=== PATIENT | male | born 1990 | race Caucasian/White ===

== ENCOUNTER 2018-05-29 19:04 | Inpatient (IN) | payer MEDICARE, MEDICAID ==
[~2018-05-29] VITALS: Ht 167.6 cm; Wt 66.7 kg
[2018-05-29] MEDS ORDERED: LORazepam 2 MG/ML VIAL ONE (19:21)
[2018-05-29] MEDS ORDERED: DiphenhydrAMINE HCL 50 MG/ML VIAL ONE (19:21)
[2018-05-29] MEDS ORDERED: HALOPERIDOL LACTATE 5 MG/ML VIAL ONE (19:21)
[2018-05-29] MEDS ORDERED: DiphenhydrAMINE HCL 50 MG/ML VIAL IM ONE (19:30)
[2018-05-29] MEDS ORDERED: HALOPERIDOL LACTATE 5 MG/ML VIAL IM ONE (19:30)
[2018-05-29] MEDS ORDERED: LORazepam 2 MG/ML VIAL IM ONE (19:30)
[2018-05-29 19:47] VITALS: BP 142/88
[2018-05-30 06:20] VITALS: BP 121/66
[2018-05-30 08:08] VITALS: BP 118/60
[2018-05-30 08:56] LABS: BASOPHILS % (AUTO) 0.5 % (0.0-2.0); EOSINOPHILS % (AUTO) 3.2 % (1.0-6.0); HEMATOCRIT 41.5 % (41-53); HEMOGLOBIN 14.8 g/dL (13.5-17.5); LYMPHOCYTES # (AUTO) 1.4 K/uL (1.0-4.8); LYMPHOCYTES % (AUTO) 18.2 % (22.0-44.0); MEAN CORPUSCULAR HEMOGLOBIN 29.7 pg (26.0-34.0); MEAN CORPUSCULAR HGB CONC 35.5 G/dL (31.0-37.0); MEAN CORPUSCULAR VOLUME 84 fL (80-100); MONOCYTES # (AUTO) 0.6 K/uL (0.1-1.0); MONOCYTES % (AUTO) 8.3 % (2.0-9.0); NEUTROPHILS # (AUTO) 5.5 K/uL (1.8-7.7); NEUTROPHILS % (AUTO) 69.8 % (40.0-70.0); PLATELET COUNT (AUTO) 180 K/uL (150-450); RED BLOOD CELL COUNT(AUTO) 4.97 MIL/uL (4.50-5.90)
[2018-05-30] MEDS ORDERED: NICOTINE 21 MG/24 HOUR PATCH TD SCH (09:00)
[2018-05-30 09:18] LABS: HEMOGLOBIN A1C 4.8 % (4.5-6.2)
[2018-05-30 09:49] LABS: ALANINE AMINOTRANSFERASE 19 U/L (12-78); ALBUMIN 3.6 g/dL (3.4-5.0); ALKALINE PHOSPHATASE 77 U/L (46-116); ANION GAP 5 mmol/L (8-16); ASPARTATE AMINOTRANSFERASE 27 U/L (15-37); CALCIUM, TOTAL 8.9 mg/dL (8.8-10.5); CARBON DIOXIDE 32 mmol/L (22-29); CHLORIDE 105 mmol/L (98-107); CHOL/HDL RATIO 2.5 (4.2-7.3); CHOLESTEROL 109 mg/dL (131-200); CREATININE 0.95 mg/dL (0.60-1.30); FREE T4 (FREE THYROXINE) 0.89 ng/dL (0.76-1.46); GLOMERULAR FILTR. RATE CALC > 60 mL/min (>60); GLUCOSE,RANDOM 93 mg/dL (70-110); HDL CHOLESTEROL 43 mg/dL (40-60); LDL CHOL (CALC.) 55 mg/dL (0-130); POTASSIUM 4.1 mmol/L (3.5-5.1); SODIUM SERUM 142 mmol/L (136-145); THYROID STIMULATING HORMONE 0.64 uIU/mL (0.36-3.74); TOTAL PROTEIN, SERUM 6.9 g/dL (6.4-8.2); TRIGLYCERIDES 55 mg/dL (15-150); UREA NITROGEN, BLOOD 15 mg/dL (7-18)
[2018-05-30] MEDS: HALOPERIDOL 5 MG TABLET PO PRN ×2 (09:55→16:45)
[2018-05-30] MEDS: LORazepam 2 MG TABLET PO PRN ×2 (09:55→16:45)
[2018-05-30] MEDS ORDERED: LOPERAMIDE HCL 2 MG CAPSULE PO PRN (11:30)
[2018-05-30] MEDS ORDERED: DOCUSATE SODIUM 100 MG CAPSULE PO PRN (11:30)
[2018-05-30] MEDS ORDERED: PETROLATUM,WHITE 71 GM JELLY TP PRN (11:30)
[2018-05-30] MEDS ORDERED: IBUPROFEN 400 MG TABLET PO PRN (11:30)
[2018-05-30] MEDS ORDERED: ACETAMINOPHEN 325 MG TABLET PO PRN (11:30)
[2018-05-30] MEDS ORDERED: ONDANSETRON HCL 4 MG TABLET PO PRN (11:30)
[2018-05-30] MEDS ORDERED: ALBUTEROL SULFATE HFA 90 MCG/PUFF 8 GM INHALER IH PRN (11:30)
[2018-05-30] MEDS ORDERED: MAG HYDROX/AL HYDROX/SIMETH ES 30 ML SUSPENSION UDCUP PO PRN (11:30)
[2018-05-30] MEDS ORDERED: CloNIDine HCL 0.1 MG TABLET PO PRN (11:30)
[2018-05-30] MEDS ORDERED: MAGNESIUM HYDROXIDE SUSPENSION 30 ML UDCUP PO PRN (11:30)
[2018-05-30 16:00] VITALS: BP 112/65
[2018-05-31 06:16] VITALS: BP 103/82
[2018-05-31 09:05] LABS: HEMOGLOBIN A1C 4.6 % (4.5-6.2)
[2018-05-31 09:26] LABS: CHOL/HDL RATIO 2.3 (4.2-7.3); THYROID STIMULATING HORMONE 0.61 uIU/mL (0.36-3.74)
[2018-05-31] MEDS: ARIPiprazole 10 MG TABLET PO SCH (09:33)
[2018-05-31] MEDS: NICOTINE 14 MG/24 HOUR PATCH TD SCH (09:34)
[2018-05-31] MEDS: LORazepam 2 MG TABLET PO PRN (12:56)
[2018-05-31 16:00] VITALS: BP 116/67
[2018-06-01 03:15] VITALS: BP 102/66
[2018-06-01 08:00] VITALS: BP 114/72
[2018-06-01] MEDS: ARIPiprazole 10 MG TABLET PO SCH (09:18)
[2018-06-01] MEDS: NICOTINE 14 MG/24 HOUR PATCH TD SCH (09:19)
[2018-06-01 16:00] VITALS: BP 102/64
[2018-06-01] MEDS: ZOLPIDEM TARTRATE 10 MG TABLET PO PRN (21:14)
[2018-06-02 01:32] VITALS: BP 106/73
[2018-06-02] MEDS: HALOPERIDOL 5 MG TABLET PO PRN ×2 (05:00→16:21)
[2018-06-02] MEDS: LORazepam 2 MG TABLET PO PRN ×4 (05:00→20:55)
[2018-06-02 08:07] VITALS: BP 105/65
[2018-06-02] MEDS: ARIPiprazole 10 MG TABLET PO SCH (09:10)
[2018-06-02] MEDS: NICOTINE 14 MG/24 HOUR PATCH TD SCH (09:10)
[2018-06-02 16:00] VITALS: BP 107/74
[2018-06-02] MEDS: ZOLPIDEM TARTRATE 10 MG TABLET PO PRN (20:55)
[2018-06-03 02:18] VITALS: BP 10/83
[2018-06-03 08:07] VITALS: BP 105/60
[2018-06-03] MEDS: NICOTINE 14 MG/24 HOUR PATCH TD SCH (08:36)
[2018-06-03] MEDS: ARIPiprazole 10 MG TABLET PO SCH (08:36)
[2018-06-03] MEDS: LORazepam 2 MG TABLET PO PRN ×2 (13:02→17:17)
[2018-06-03 16:00] VITALS: BP 114/68
[2018-06-03] MEDS ORDERED: TUBERCULIN, PURIFIED PROTEIN DERIVATIVE 5 TU/0.1 ML SYG ID ONE (16:30)
[2018-06-03] MEDS: HALOPERIDOL 5 MG TABLET PO PRN (17:17)
[2018-06-03] MEDS: ZOLPIDEM TARTRATE 10 MG TABLET PO PRN (20:38)
[2018-06-04 06:00] VITALS: BP 106/66
[2018-06-04 08:08] VITALS: BP 136/75
[2018-06-04] MEDS: NICOTINE 14 MG/24 HOUR PATCH TD SCH (09:31)
[2018-06-04] MEDS: ARIPiprazole 10 MG TABLET PO SCH (09:31)
[2018-06-04 16:00] VITALS: BP 114/75
[2018-06-04] MEDS ORDERED: ARIP10TA8 PO (16:59)
[2018-06-04] MEDS: LORazepam 2 MG TABLET PO PRN ×2 (17:36→21:37)
[2018-06-04] MEDS: HALOPERIDOL 5 MG TABLET PO PRN (17:36)
[2018-06-04] MEDS: ZOLPIDEM TARTRATE 10 MG TABLET PO PRN (21:37)
[2018-06-05 06:30] VITALS: BP 96/57
[2018-06-05 08:12] VITALS: BP 108/75
[2018-06-05] MEDS: ARIPiprazole 10 MG TABLET PO SCH (09:43)
[2018-06-05] MEDS: NICOTINE 14 MG/24 HOUR PATCH TD SCH (12:41)
[2018-06-05 16:00] VITALS: BP 129/70
[2018-06-05] MEDS: LORazepam 2 MG TABLET PO PRN ×2 (16:16→21:53)
[2018-06-05] MEDS: HALOPERIDOL 5 MG TABLET PO PRN (16:16)
[2018-06-05] MEDS: ZOLPIDEM TARTRATE 10 MG TABLET PO PRN (21:53)
[2018-06-06 06:10] VITALS: BP 122/75
[2018-06-06 08:43] VITALS: BP 114/70
[2018-06-06] MEDS ORDERED: ARIPiprazole 15 MG TABLET PO SCH (09:00)
[2018-06-06] MEDS: NICOTINE 14 MG/24 HOUR PATCH TD SCH (10:56)
== END 2018-06-06 13:43 | disposition home or self-care (01) | DRG 885 ==
LOC: B3A 19:25
PROVIDERS: ADMIT Psychiatry & Neurology Psychiatry; ATTEND Psychiatry & Neurology Psychiatry
DX: F20.0 Paranoid schizophrenia (principal); F15.20 Other stimulant dependence, uncomplicated; R00.0 Tachycardia, unspecified; R45.87 Impulsiveness; F10.10 Alcohol abuse, uncomplicated; Z71.41 Alcohol abuse counseling and surveillance of alcoholic; Z71.51 Drug abuse counseling and surveillance of drug abuser; Z81.8 Family history of other mental and behavioral disorders; Z91.19 Patient's noncompliance with other medical treatment and regimen
CPT/HCPCS: 83036; 84439; 84443; J1200; J1630; J2060

== ENCOUNTER 2018-07-16 10:53 | Emergency (ER) | payer OTHER ==
[~2018-07-16] VITALS: Ht 170.2 cm; Wt 63.6 kg
[~2018-07-16 10:53] MED LIST: ARIP10TA8 PO
[2018-07-16] MEDS ORDERED: AMOX TR/POT CLAV 875 MG/125 MG TABLET PO ONE (12:30)
[2018-07-16] MEDS ORDERED: KETOROLAC TROMETHAMINE 30 MG/ML VIAL IM ONE (12:30)
[2018-07-16 14:18] VITALS: BP 132/81
== END 2018-07-16 14:21 | disposition home or self-care (01) ==
LOC: EMS 10:54
DX: S00.501A Unspecified superficial injury of lip, initial encounter (principal); F15.90 Other stimulant use, unspecified, uncomplicated; F17.210 Nicotine dependence, cigarettes, uncomplicated; Y04.0XXA Assault by unarmed brawl or fight, initial encounter; Y93.89 Activity, other specified; Y92.89 Other specified places as the place of occurrence of the external cause; Y99.8 Other external cause status
CPT/HCPCS: 96372; 99283; 99406; J1885

== ENCOUNTER 2018-07-17 00:34 | Emergency (ER) | payer OTHER ==
[~2018-07-17] VITALS: Ht 172.7 cm; Wt 70.5 kg
[2018-07-17 01:50] VITALS: BP 128/78
[2018-07-17] MEDS ORDERED: CefTRIAXone SODIUM 1 GM/VIAL IM ONE (02:15)
== END 2018-07-17 02:35 | disposition home or self-care (01) ==
LOC: EMS 00:35
DX: K13.0 Diseases of lips (principal); F15.90 Other stimulant use, unspecified, uncomplicated
CPT/HCPCS: 96372; 99283; J0696

== ENCOUNTER 2018-11-03 22:14 | Inpatient (IN) | payer MEDICARE, MEDICAID ==
[~2018-11-03] VITALS: Ht 165.1 cm; Wt 73.5 kg
[~2018-11-03 22:14] MED LIST changes: -ARIP10TA8 PO; +LITH600 PO
[2018-11-03 22:56] LABS: BASOPHILS % (AUTO) 0.5 % (0.0-2.0); EOSINOPHILS % (AUTO) 0.5 % (1.0-6.0); HEMATOCRIT 42.4 % (41-53); HEMOGLOBIN 14.8 g/dL (13.5-17.5); LYMPHOCYTES # (AUTO) 0.7 K/uL (1.0-4.8); LYMPHOCYTES % (AUTO) 7.3 % (22.0-44.0); MEAN CORPUSCULAR HEMOGLOBIN 29.9 pg (26.0-34.0); MEAN CORPUSCULAR HGB CONC 34.9 G/dL (31.0-37.0); MEAN CORPUSCULAR VOLUME 86 fL (80-100); MONOCYTES # (AUTO) 0.6 K/uL (0.1-1.0); MONOCYTES % (AUTO) 5.7 % (2.0-9.0); NEUTROPHILS # (AUTO) 8.4 K/uL (1.8-7.7); PLATELET COUNT (AUTO) 215 K/uL (150-450); RED BLOOD CELL COUNT(AUTO) 4.95 MIL/uL (4.50-5.90); RED CELL DISTRIBUTION WIDTH 12.4 % (11.5-14.5)
[2018-11-03] MEDS ORDERED: OLAN10TA3 PO (22:58)
[2018-11-03] MEDS ORDERED: DIPH50DI IM (22:58)
[2018-11-03] MEDS ORDERED: ARIPIPRAZOLE IM (22:58)
[2018-11-03 23:08] LABS: ANION GAP 6 mmol/L (8-16); CARBON DIOXIDE 28 mmol/L (22-29); CHLORIDE 106 mmol/L (98-107); CREATININE 0.98 mg/dL (0.60-1.30); GLOMERULAR FILTR. RATE CALC > 60 mL/min (>60); GLUCOSE,RANDOM 96 mg/dL (70-110); POTASSIUM 3.8 mmol/L (3.5-5.1); SODIUM SERUM 140 mmol/L (136-145); UREA NITROGEN, BLOOD 10 mg/dL (7-18)
[2018-11-03 23:14] LABS: ALANINE AMINOTRANSFERASE 23 U/L (12-78); ALBUMIN 4.4 g/dL (3.4-5.0); ALKALINE PHOSPHATASE 70 U/L (46-116); ASPARTATE AMINOTRANSFERASE 28 U/L (15-37); BILIRUBIN,TOTAL 0.5 mg/dL (0.1-1.0); TOTAL PROTEIN, SERUM 7.7 g/dL (6.4-8.2)
[2018-11-03 23:28] LABS: AMPHET/METH SCREEN,URINE NEGATIVE (NEGATIVE); BARBITURATE SCREEN, URINE NEGATIVE (NEGATIVE); BENZODIAZEPINES SCREEN,URINE NEGATIVE (NEGATIVE); CANNABINOID SCREEN,URINE NEGATIVE (NEGATIVE); COCAINE SCREEN,URINE NEGATIVE (NEGATIVE); METHADONE SCREEN, URINE NEGATIVE (NEGATIVE); OPIATE SCREEN,URINE NEGATIVE (NEGATIVE)
[2018-11-03 23:29] LABS: PHENCYCLIDINE SCREEN,URINE NEGATIVE (NEGATIVE)
[2018-11-04] MEDS: HALOPERIDOL 5 MG TABLET PO PRN (09:56)
[2018-11-04] MEDS: LORazepam 2 MG TABLET PO PRN ×2 (09:56→16:13)
[2018-11-04 15:07] VITALS: BP 132/84
[2018-11-04 17:14] VITALS: BP 120/84
[2018-11-04] MEDS ORDERED: LOPERAMIDE HCL 2 MG CAPSULE PO PRN (18:15)
[2018-11-04] MEDS ORDERED: MAGNESIUM HYDROXIDE SUSPENSION 30 ML UDCUP PO PRN (18:15)
[2018-11-04] MEDS ORDERED: GuaiFENesin/D-METHORPHAN [SUGAR-FREE] 200-20MG/10 ML SYRUP UDCUP PO PRN (18:15)
[2018-11-04] MEDS ORDERED: NICOTINE 14 MG/24 HOUR PATCH TD PRN (18:15)
[2018-11-04] MEDS ORDERED: MAG HYDROX/AL HYDROX/SIMETH ES 30 ML SUSPENSION UDCUP PO PRN (18:15)
[2018-11-04] MEDS ORDERED: CloNIDine HCL 0.1 MG TABLET PO PRN (18:15)
[2018-11-04] MEDS ORDERED: ONDANSETRON HCL 4 MG TABLET PO PRN (18:15)
[2018-11-04] MEDS ORDERED: PETROLATUM,WHITE 71 GM JELLY TP PRN (18:15)
[2018-11-04] MEDS ORDERED: ACETAMINOPHEN 325 MG TABLET PO PRN (18:15)
[2018-11-04] MEDS ORDERED: DOCUSATE SODIUM 100 MG CAPSULE PO PRN (18:15)
[2018-11-04] MEDS ORDERED: IBUPROFEN 400 MG TABLET PO PRN (18:15)
[2018-11-05] MEDS: HALOPERIDOL 5 MG TABLET PO PRN ×2 (06:04→17:00)
[2018-11-05] MEDS: LORazepam 2 MG TABLET PO PRN ×2 (06:17→16:04)
[2018-11-05 06:45] LABS: BASOPHILS % (AUTO) 0.4 % (0.0-2.0); EOSINOPHILS % (AUTO) 2.7 % (1.0-6.0); HEMATOCRIT 43.4 % (41-53); HEMOGLOBIN 15.2 g/dL (13.5-17.5); LYMPHOCYTES # (AUTO) 1.8 K/uL (1.0-4.8); LYMPHOCYTES % (AUTO) 23.5 % (22.0-44.0); MEAN CORPUSCULAR HEMOGLOBIN 30.1 pg (26.0-34.0); MEAN CORPUSCULAR VOLUME 86 fL (80-100); MONOCYTES # (AUTO) 0.5 K/uL (0.1-1.0); MONOCYTES % (AUTO) 6.7 % (2.0-9.0); NEUTROPHILS % (AUTO) 66.7 % (40.0-70.0); PLATELET COUNT (AUTO) 199 K/uL (150-450); RED BLOOD CELL COUNT(AUTO) 5.04 MIL/uL (4.50-5.90); RED CELL DISTRIBUTION WIDTH 12.8 % (11.5-14.5)
[2018-11-05 07:02] LABS: HEMOGLOBIN A1C 4.5 % (4.5-6.2)
[2018-11-05 07:37] LABS: ALANINE AMINOTRANSFERASE 25 U/L (12-78); ALBUMIN 3.9 g/dL (3.4-5.0); ALKALINE PHOSPHATASE 69 U/L (46-116); ANION GAP 6 mmol/L (8-16); ASPARTATE AMINOTRANSFERASE 27 U/L (15-37); BILIRUBIN,TOTAL 0.6 mg/dL (0.1-1.0); CALCIUM, TOTAL 8.5 mg/dL (8.8-10.5); CARBON DIOXIDE 30 mmol/L (22-29); CHLORIDE 105 mmol/L (98-107); CHOL/HDL RATIO 2.4 (4.2-7.3); CHOLESTEROL 102 mg/dL (131-200); CREATININE 1.03 mg/dL (0.60-1.30); GLOMERULAR FILTR. RATE CALC > 60 mL/min (>60); GLUCOSE,RANDOM 103 mg/dL (70-110); HDL CHOLESTEROL 42 mg/dL (40-60); LDL CHOL (CALC.) 50 mg/dL (0-130); POTASSIUM 4.2 mmol/L (3.5-5.1); SODIUM SERUM 141 mmol/L (136-145); THYROID STIMULATING HORMONE 2.77 uIU/mL (0.36-3.74); TOTAL PROTEIN, SERUM 6.8 g/dL (6.4-8.2); TRIGLYCERIDES 48 mg/dL (15-150); UREA NITROGEN, BLOOD 13 mg/dL (7-18)
[2018-11-05 08:00] VITALS: BP 114/71
[2018-11-05] MEDS: ALBUTEROL SULFATE HFA 90 MCG/PUFF 8 GM INHALER IH PRN (09:47)
[2018-11-05] MEDS: LITHIUM CARBONATE 600 MG CAPSULE PO SCH ×2 (10:42→16:02)
[2018-11-05 17:50] VITALS: BP 145/84
[2018-11-06] MEDS: LORazepam 2 MG TABLET PO PRN (04:48)
[2018-11-06] MEDS: LITHIUM CARBONATE 600 MG CAPSULE PO SCH ×2 (08:04→16:13)
[2018-11-06 09:45] VITALS: BP 119/79
[2018-11-06] MEDS: ALBUTEROL SULFATE HFA 90 MCG/PUFF 8 GM INHALER IH PRN (16:04)
[2018-11-06 16:32] VITALS: BP 116/72
[2018-11-06] MEDS: ZOLPIDEM TARTRATE 10 MG TABLET PO PRN (22:06)
[2018-11-07] MEDS: LITHIUM CARBONATE 600 MG CAPSULE PO SCH ×2 (07:43→16:30)
[2018-11-07] MEDS: LORazepam 2 MG TABLET PO PRN ×2 (08:02→16:30)
[2018-11-07] MEDS: HALOPERIDOL 5 MG TABLET PO PRN ×2 (08:02→16:30)
[2018-11-07 08:05] VITALS: BP 121/80
[2018-11-07 16:50] VITALS: BP 124/69
[2018-11-08 08:15] VITALS: BP 122/86
[2018-11-08] MEDS: LITHIUM CARBONATE 600 MG CAPSULE PO SCH ×2 (08:41→16:59)
[2018-11-08] MEDS: ALBUTEROL SULFATE HFA 90 MCG/PUFF 8 GM INHALER IH PRN (12:46)
[2018-11-08 16:14] VITALS: BP 124/70
[2018-11-08] MEDS: HALOPERIDOL 5 MG TABLET PO PRN (16:59)
[2018-11-08] MEDS: LORazepam 2 MG TABLET PO PRN ×2 (16:59→22:47)
[2018-11-08] MEDS: ZOLPIDEM TARTRATE 10 MG TABLET PO PRN (22:47)
[2018-11-09] MEDS: LITHIUM CARBONATE 600 MG CAPSULE PO SCH ×2 (07:51→16:12)
[2018-11-09] MEDS: LORazepam 2 MG TABLET PO PRN ×2 (07:51→16:12)
[2018-11-09 08:03] VITALS: BP 129/74
[2018-11-09] MEDS: HALOPERIDOL 5 MG TABLET PO PRN (16:12)
[2018-11-09 16:28] VITALS: BP 120/72
[2018-11-10] MEDS: ZOLPIDEM TARTRATE 10 MG TABLET PO PRN ×2 (02:08→21:06)
[2018-11-10] MEDS: LITHIUM CARBONATE 600 MG CAPSULE PO SCH ×2 (07:55→16:33)
[2018-11-10 10:28] VITALS: BP 117/74
[2018-11-10] MEDS: HALOPERIDOL 5 MG TABLET PO PRN (16:33)
[2018-11-10] MEDS: LORazepam 2 MG TABLET PO PRN ×2 (16:33→21:06)
[2018-11-10 16:45] VITALS: BP 122/76
[2018-11-11 08:25] VITALS: BP 110/66
[2018-11-11] MEDS: LITHIUM CARBONATE 600 MG CAPSULE PO SCH ×2 (09:18→16:27)
[2018-11-11 18:21] VITALS: BP 125/72
[2018-11-11] MEDS: ZOLPIDEM TARTRATE 10 MG TABLET PO PRN (21:55)
[2018-11-11] MEDS: LORazepam 2 MG TABLET PO PRN (21:55)
[2018-11-12 08:39] VITALS: BP 126/67
[2018-11-12] MEDS ORDERED: ARIPiprazole LAUROXIL ER SUSPENSION 882 MG/3.2 ML SYRINGE IM SCH (09:00)
[2018-11-12] MEDS: LITHIUM CARBONATE 600 MG CAPSULE PO SCH ×2 (09:06→16:44)
[2018-11-12 16:41] VITALS: BP 130/68
[2018-11-12] MEDS: ZOLPIDEM TARTRATE 10 MG TABLET PO PRN (20:45)
[2018-11-13 01:23] VITALS: BP 126/95
[2018-11-13] MEDS: LORazepam 2 MG TABLET PO PRN ×2 (03:09→18:33)
[2018-11-13] MEDS: LITHIUM CARBONATE 600 MG CAPSULE PO SCH ×2 (08:06→16:41)
[2018-11-13 08:22] VITALS: BP 112/73
[2018-11-13 16:18] VITALS: BP 131/81
[2018-11-14] MEDS: LITHIUM CARBONATE 600 MG CAPSULE PO SCH ×2 (09:11→17:12)
[2018-11-14 10:02] VITALS: BP 114/70
[2018-11-14 16:47] VITALS: BP 123/78
[2018-11-15] MEDS: ZOLPIDEM TARTRATE 10 MG TABLET PO PRN ×2 (00:18→20:09)
[2018-11-15] MEDS: LORazepam 2 MG TABLET PO PRN ×2 (00:18→09:24)
[2018-11-15] MEDS: LITHIUM CARBONATE 600 MG CAPSULE PO SCH ×2 (08:20→16:15)
[2018-11-15 08:43] VITALS: BP 118/80
[2018-11-15] MEDS: HALOPERIDOL 5 MG TABLET PO PRN (09:23)
[2018-11-15 17:18] VITALS: BP 96/70
[2018-11-16] MEDS: LITHIUM CARBONATE 600 MG CAPSULE PO SCH ×2 (08:17→16:07)
[2018-11-16 09:00] VITALS: BP 126/74
[2018-11-16] MEDS: HALOPERIDOL 5 MG TABLET PO PRN (09:55)
[2018-11-16] MEDS: LORazepam 2 MG TABLET PO PRN ×2 (09:55→23:25)
[2018-11-16 16:41] VITALS: BP 122/86
[2018-11-16] MEDS: ZOLPIDEM TARTRATE 10 MG TABLET PO PRN (23:25)
[2018-11-17] MEDS: LORazepam 2 MG TABLET PO PRN (08:18)
[2018-11-17] MEDS: LITHIUM CARBONATE 600 MG CAPSULE PO SCH ×2 (08:18→16:27)
[2018-11-17] MEDS: HALOPERIDOL 5 MG TABLET PO PRN (08:18)
[2018-11-17] MEDS: ALBUTEROL SULFATE HFA 90 MCG/PUFF 8 GM INHALER IH PRN ×2 (08:23→17:51)
[2018-11-17 08:30] VITALS: BP 118/81
[2018-11-17 19:26] VITALS: BP 122/90
[2018-11-17] MEDS: ZOLPIDEM TARTRATE 10 MG TABLET PO PRN (22:54)
[2018-11-18 08:09] VITALS: BP 132/90
[2018-11-18] MEDS: HALOPERIDOL 5 MG TABLET PO PRN (08:10)
[2018-11-18] MEDS: LORazepam 2 MG TABLET PO PRN (08:10)
[2018-11-18] MEDS: LITHIUM CARBONATE 600 MG CAPSULE PO SCH ×2 (08:10→16:59)
[2018-11-18 16:49] VITALS: BP 120/63
[2018-11-19] MEDS: LORazepam 2 MG TABLET PO PRN (07:24)
[2018-11-19] MEDS: HALOPERIDOL 5 MG TABLET PO PRN ×2 (07:24→08:14)
[2018-11-19 08:00] VITALS: BP 118/72
[2018-11-19] MEDS: LITHIUM CARBONATE 600 MG CAPSULE PO SCH ×2 (08:14→16:34)
[2018-11-19 16:55] VITALS: BP 133/76
[2018-11-19] MEDS: ZOLPIDEM TARTRATE 10 MG TABLET PO PRN (21:25)
[2018-11-20] MEDS: LITHIUM CARBONATE 600 MG CAPSULE PO SCH (08:04)
== END 2018-11-20 09:20 | DRG 885 ==
LOC: EMS 22:16 → 3EC 11-04 14:33
DX: F20.0 Paranoid schizophrenia (principal); F41.9 Anxiety disorder, unspecified; F10.10 Alcohol abuse, uncomplicated; G47.00 Insomnia, unspecified; R10.13 Epigastric pain; Y90.9 Presence of alcohol in blood, level not specified; K59.00 Constipation, unspecified; R45.87 Impulsiveness; Z71.51 Drug abuse counseling and surveillance of drug abuser
CPT/HCPCS: 83036; 84443; 87081; G0480; J3535

== ENCOUNTER 2020-01-28 09:48 | Emergency (ER) | payer OTHER ==
[~2020-01-28] VITALS: Ht 167.6 cm; Wt 90.0 kg
[~2020-01-28 09:48] MED LIST changes: +ARIPIPRAZOLE IM
[2020-01-28 11:01] VITALS: BP 118/77
== END 2020-01-28 11:16 | disposition home or self-care (01) ==
LOC: EMS 09:49
DX: Z04.6 Encounter for general psychiatric examination, requested by authority (principal); F20.9 Schizophrenia, unspecified; F19.90 Other psychoactive substance use, unspecified, uncomplicated

== ENCOUNTER 2022-05-22 05:30 | Emergency (ER) | payer OTHER ==
[~2022-05-22] VITALS: Ht 167.6 cm; Wt 80.0 kg
[~2022-05-22 05:30] MED LIST changes: -LITH600 PO; +LITH600C5 PO
[2022-05-22] MEDS ORDERED: KETOROLAC TROMETHAMINE 60 MG/2 ML VIAL IM ONE (07:00)
[2022-05-22] MEDS ORDERED: LORazepam 1 MG TABLET PO ONE (07:00)
[2022-05-22 12:16] VITALS: BP 114/83
== END 2022-05-22 12:36 | disposition home or self-care (01) ==
LOC: EMS 05:30
DX: R51.9 Headache, unspecified (principal); F20.9 Schizophrenia, unspecified; F15.90 Other stimulant use, unspecified, uncomplicated
CPT/HCPCS: 70450; 96372; 99284; J1885